=== PATIENT | female | born 1960 | race Two or more races ===

== ENCOUNTER 2020-07-27 09:18 | Emergency (ER) | payer BC ==
[~2020-07-27] VITALS: Ht 167.6 cm; Wt 87.5 kg
[2020-07-27] MEDS ORDERED: SKELAXIN800 MG PO (12:08)
[2020-07-27] MEDS ORDERED: CELEBREX200MG PO (12:08)
== END 2020-07-27 12:43 | disposition home or self-care (01) ==
LOC: ER 09:18
DX: M54.5 Low back pain (principal)

== ENCOUNTER 2022-02-26 18:10 | Emergency (ER) | payer BC ==
[~2022-02-26] VITALS: Ht 165.1 cm; Wt 79.8 kg
[~2022-02-26 18:10] MED LIST: CELEBREX200MG PO; SKELAXIN800 MG PO
[2022-02-26] MEDS ORDERED: FAMCICLOVIR500 MG PO (19:19)
[2022-02-26] MEDS ORDERED: NEURONTIN300 MG PO (19:19)
[2022-02-26] MEDS ORDERED: DICLOFENAC SODI75 MG PO (19:20)
== END 2022-02-26 19:50 | disposition home or self-care (01) ==
LOC: ER 18:10
DX: B02.30 Zoster ocular disease, unspecified (principal)